=== PATIENT | female | born 1980 | race Caucasian/White ===

== ENCOUNTER 2017-01-14 12:27 | Emergency (ER) | payer OTHER ==
[2017-01-14 12:59] LABS: Blood, Urine Negative (Negative); Clarity Clear (Clear); Glucose, Urine (Dipstick) Negative (Negative); Leukocyte Negative (Negative); Nitrite Negative (Negative); Protein, Urine (Dipstick) Negative (Neg-Trace); Specific Gravity, Urine 1.025 (1.005-1.030); pH, Urine 5.5 (5.0-9.0)
[2017-01-14 13:03] LABS: Pregnancy Test - Urine (BHCG) NEGATIVE (NEGATIVE); Pregu Control Bar Appear? YES (CONTROL BAR); Specific Gravity 1.025 (1.002-1.036)
[2017-01-14 13:04] LABS: Bilirubin Negative (Negative)
== END 2017-01-14 13:12 | disposition home or self-care (01) ==
LOC: NAV ERS 12:27
DX: R10.32 Left lower quadrant pain (principal); E03.9 Hypothyroidism, unspecified; E78.5 Hyperlipidemia, unspecified; F41.9 Anxiety disorder, unspecified; Z79.52 Long term (current) use of systemic steroids; Z79.899 Other long term (current) drug therapy
CPT/HCPCS: 81003; 81025; 99284

== ENCOUNTER 2025-05-26 20:04 | Emergency (ER) | payer OTHER ==
[2025-05-26] MEDS ORDERED: Methocarbamol 500 MG TAB ONE (20:40)
[2025-05-26] MEDS ORDERED: Ibuprofen 800 MG TAB ONE (20:40)
== END 2025-05-26 20:47 | disposition home or self-care (01) ==
LOC: NAV ERS 20:04
DX: S39.012A Strain of muscle, fascia and tendon of lower back, initial encounter (principal); S16.1XXA Strain of muscle, fascia and tendon at neck level, initial encounter; S80.01XA Contusion of right knee, initial encounter; V49.49XA Driver injured in collision with other motor vehicles in traffic accident, initial encounter; Y93.89 Activity, other specified
CPT/HCPCS: 99283